=== PATIENT | female | born 1970 | race African-American/Black ===

== ENCOUNTER 2022-06-23 15:33 | Emergency (ER) | payer OTHER, SELFPAY ==
[2022-06-23 15:36] VITALS: BP 159/96; PULSE 103; RESP 15; TEMP 36.8; O2SAT 97
--- NOTE | 2022-06-23 15:41 | ECG_ITS ---
Measurements Intervals [place] Rate: 100 P: 69 W[place]: 167 QRS: 40 QRSD: 80 T: 64 QT: 360 QTc: 466 Interpretive Statements SINUS TACHYCARDIA BORDERLINE ECG NO PREVIOUS ECG AVAILABLE FOR COMPARISON Electronically Signed On 06-23-2022 15:52:03 CDT by John Acosta D.O.
--- NOTE | 2022-06-23 16:04 | ED.SEIZURE ---
HPI - Seizure General Chief Complaint: Seizure Stated Complaint: seizure Time Seen by Provider: 06/23/22 15:40 History of Present Illness HPI Narrative: 52-year-old female presents to the ER by EMS today for evaluation for reported seizure episode. She was being pulled out of a car by the police and she says that this caused her to have a seizure. She is able to recall the full incident. She says that the police officer crime prevention was yelling at her and threatening her and she told them that she was having a seizure. She reports having a history of seizures and says that she takes Keppra and Dilantin for this. She reports that her last dose was this morning. She reports having a mild headache. She denies any injury or fall. She has been drinking today. Related Data Allergies Allergy/AdvReac Type Severity Reaction Status Date / Time No Known Allergies Allergy Verified 06/23/22 15:40 Review of Systems Review of Systems: CONSTITUTIONAL: Denies fever, chills, or sweats. EYES: Denies visual changes, redness, or discharge. ENT: Denies rhinorrhea, congestion, sore throat, or otalgia. CARDIOVASCULAR: Denies chest pain, palpitations, or edema. RESPIRATORY: Denies cough or dyspnea. GASTROINTESTINAL: Denies abdominal pain, nausea, vomiting, or diarrhea. GENITOURINARY: Denies dysuria or hematuria. SKIN: Denies rash or itching. MUSCULOSKELETAL: Denies back pain, joint pain, or myalgia. NEUROLOGIC: reported seizure, mild headache PSYCHIATRIC: Denies anxiety or depression. Exam Narrative: GENERAL: Well-appearing, well-nourished, and in no acute distress. HEAD: Normocephalic, atraumatic. EYES: PERRLA and EOMI. NECK: Supple. No adenopathy or masses. No carotid bruits or JVD CHEST: Clear to auscultation. No respiratory distress. No wheezes rales or rhonchi HEART: Regular rate and rhythm. No murmur heard. Normal peripheral pulses. ABDOMEN: Soft, nontender, nondistended, normal active bowel sounds. EXTREMITIES: Normal range of motion. No edema. SKIN: Warm, dry, no rash. NEURO: No focal deficits. Alert and oriented x3. PSYCH: Normal mood and affect. Course Vital Signs Vital signs: Vital Signs Temperature 36.8 C 06/23/22 15:36 Pulse Rate 103 H 06/23/22 15:36 Respiratory Rate 15 06/23/22 15:36 Blood Pressure 159/96 H 06/23/22 15:36 Pulse Oximetry 97 06/23/22 15:36 Temperature 36.8 C 06/23/22 15:36 Pulse Rate 99 06/23/22 17:01 Respiratory Rate 13 06/23/22 17:01 Blood Pressure 140/88 06/23/22 17:01 Pulse Oximetry 99 06/23/22 17:01 MDM - Seizure Lab Data Result diagrams: 06/23/22 16:22 06/23/22 16:22 Labs: Lab Results 06/23/22 06/23/22 06/23/22 Range/Units 16:22 16:22 16:22 WBC 5.0 (4.5-10.0) K/mm3 RBC 4.66 (4.2-5.4) M/mm3 Hgb 13.2 (12.0-15.0) g/dL Hct 41.3 (37.0-47.0) % MCV 88.6 (80-100) fl MCH 28.3 (26-34) pg MCHC 32.0 (32-36) g/dl RDW 14.8 H (11.5-14.5) % Plt Count 210 (150-375) k/mm3 MPV 8.7 (7.4-10.4) fl Immature Gran % (Auto) 0.2 (0-0.5) % Neut % (Auto) 53.3 (45.5-73.1) % Lymph % (Auto) 31.9 (18.3-44.2) % [place] % (Auto) 9.4 H (2.6-8.5) % Eos % (Auto) 4.6 H (0-4.4) % Baso % (Auto) 0.6 (0.2-1.2) % Lymph # (Auto) 1.60 (0.9-3.2) K/mm3 [place] # (Auto) 0.5 (0.1-0.6) K/mm3 Eos # (Auto) 0.2 (0-0.3) K/mm3 Baso # (Auto) 0.0 (0.0-0.1) K/mm3 Abs Immat Gran (auto) 0.01 (0.00-0.031) K/mm3 Absolute Neuts (auto) 2.7 (1.3-6.7) K/mm3 Absolute Nucleated RBC 0.0 (0.0-0.012) K/mm3 Nucleated RBC % 0.0 (0.0-0.2) % Sodium 141 (137-145) mmol/L Potassium 3.7 (3.4-5.0) mmol/L Chloride 104 (98-107) mmol/L Carbon Dioxide 21 L (22-30) mmol/L Anion Gap 16 (8-16) mmol/L BUN 8 (7-17) mg/dL Creatinine 0.70 (0.7-1.0) mg/dL Estim Creat Clear Calc 72 ml/min Estimated GFR > 60 (59 - ) Glucose 84 (65-110) mg/dL Calcium 9.0
[2022-06-23] MEDS: KETOROLAC 15 MG/ML VIAL (*BKC) IV PUSH (16:17)
[2022-06-23] MEDS: levETIRAcetam 1000MG/NACL100ML 1,000 MG/100 ML BAG 400 MG IVPB (16:18)
[2022-06-23 16:31] LABS: Basophils Percent Auto 0.6 % (0.2-1.2); Eosinophils Absolute Auto 0.2 K/mm3 (0-0.3); Eosinophils Percent Auto 4.6 % (0-4.4); Hematocrit 41.3 % (37.0-47.0); Hemoglobin 13.2 g/dL (12.0-15.0); Immature Granulocyte Absolute 0.01 K/mm3 (0.00-0.031); Immature Granulocyte Percent A 0.2 % (0-0.5); Lymphocytes Percent Auto 31.9 % (18.3-44.2); Mean Corpuscular Hemoglobin 28.3 pg (26-34); Mean Corpuscular Volume 88.6 fl (80-100); Mean Platelet Volume 8.7 fl (7.4-10.4); Monocytes Absolute Auto 0.5 K/mm3 (0.1-0.6); Monocytes Percent Auto 9.4 % (2.6-8.5); Neutrophils Absolute Auto 2.7 K/mm3 (1.3-6.7); Neutrophils Percent Auto 53.3 % (45.5-73.1); Platelet Count Result 210 k/mm3 (150-375); Red Blood Count 4.66 M/mm3 (4.2-5.4); Red Cell Distribution Width 14.8 % (11.5-14.5)
[2022-06-23 16:46] VITALS: PULSE 94; RESP 14; O2SAT 99
[2022-06-23 16:48] LABS: Alanine Aminotransferase 26 U/L (6-35); Albumin Level 4.6 g/dL (3.5-5.1); Alkaline Phosphatase 57 U/L (38-126); Anion Gap 16 mmol/L (8-16); Aspartate Amino Transferase 41 U/L (14-36); Bilirubin,Total 0.3 mg/dL (0.2-1.3); Blood Urea Nitrogen 8 mg/dL (7-17); Carbon Dioxide 21 mmol/L (22-30); Chloride 104 mmol/L (98-107); Estimated CRCL calculation 72 ml/min; Estimated Glomerular Filt Rate > 60; Glucose 84 mg/dL (65-110); Potassium 3.7 mmol/L (3.4-5.0); Sodium 141 mmol/L (137-145)
[2022-06-23 17:01] VITALS: BP 140/88; PULSE 99; RESP 13; O2SAT 99
[2022-06-23 17:37] LABS: Phenytoin Dilantin < 3 ug/mL (10-20)
[2022-06-28 09:10] LABS: Levetiracetam Keppra <2.0
== END 2022-06-23 17:37 | disposition home or self-care (01) ==
LOC: ANHED 17:11
PROVIDERS: Emergency Medicine; Emergency Provider Nurse Practitioner Family; PCP Internal Medicine
DX: G40.909 Epilepsy, unspecified, not intractable, without status epilepticus (principal); R00.0 Tachycardia, unspecified
CPT/HCPCS: 36415; 80053; 80177; 80185; 85025; 93005; 96361; 96374; 99284; J1885; J1953